=== PATIENT | male | born 1950 | race Caucasian/White ===

== ENCOUNTER 2018-04-08 21:05 | Emergency (ER) | payer MEDICARE ==
[2018-04-08] MEDS: ONDANSETRON HCL/PF 4 MG/ 2ML VIAL IVP ONE (21:15)
[2018-04-08] MEDS: fentaNYL CITRATE/PF 100 MCG/ 2ML AMP IVP ONE (21:16)
[2018-04-08 21:43] LABS: BASOPHILS % 0.4 (0.0-1.5); EOSINOPHILS % 2.7 % (0.0-6.8); MEAN CORPUSCULAR HEMOGLOBIN 31.5 pg (28.0-34.0); MEAN CORPUSCULAR VOLUME 92.8 fl (80.0-100.0); MONOCYTES % 4.7 % (0.0-11.0); NEUTROPHILS # 11.1 # k/uL (1.4-7.7); eGFR (African) > 60; eGFR (Non-African) 54
--- NOTE | 2018-04-08 22:37 | ED Physician Documentation ---
Abdominal Pain - HISTORIAN Historian: patient, spouse - HPI Stated Complaint: Right Sided Chest Wall/RUQ Pain Chief Complaint: Abdominal Pain Onset: hours (2) Duration: worse Timing: worse Context: denies: out of country travel, bad food, recent trauma Severity: severe Quality: pain (RUQ) Associated Symptoms: none Exacerbated by: nothing Relieved by: nothing Further Comments: yes (67 year old male patient presents with RUQ and right chest wall pain 08/28. Patient states pain started 2 hours ago around 1930. Ate dinner at 1730 and went outside to work. Patient started suddenly while outside working. Bm today. Pain worse with deep breath and movement.) - ROS CONST: no problems GI/: none CVS/RESP: none EYES/ENT: none MS/SKIN/LYMPH: none NEURO/PSYCH: none - SOCIAL HX Smoking History: cigarettes - FAMILY HX Family History: none - PAST HX Past History: GERD Other History: hyperlipidemia, hypertension Home Medications: Ambulatory Orders Medication Instructions Recorded Allopurinol [Zyloprim] 300 mg PO DAILY 04/08/18 Baclofen [Liorasal] 10 mg PO TID PRN #30 tablet 04/08/18 Baclofen [Liorasal] 10 mg PO TID PRN #30 tablet 04/08/18 Citalopram Hydrobromide 40 mg PO DAILY 04/08/18 [Citalopram HBr] Clonazepam [Clonazepam] 0.5 mg PO DAILY PRN 04/08/18 Ketorolac Tromethamine [Toradol] 10 mg PO TID #15 tablet 04/08/18 Losartan Potassium [Cozaar] 100 mg PO DAILY 04/08/18 Lovastatin [Lovastatin] 20 mg PO DAILY 04/08/18 Omeprazole [Omeprazole] 20 mg PO DAILY 04/08/18 Allergies/Adverse Reactions: Allergies Allergy/AdvReac Type Severity Reaction Status Date / Time No Known Allergies Allergy Unverified 04/08/18 21:12 - VITAL SIGNS Vital Signs: Vital Signs Temp Pulse Resp BP Pulse Ox 85 24 165/88 95 04/08/18 22:38 04/08/18 21:05 04/08/18 21:05 04/08/18 22:38 - REVIEWED ASSESSMENTS Nursing Assessment Reviewed: Yes Vitals Reviewed: Yes Progress - Progress Progress: Reviewed lab results with patient; WBC 13.9 - will progress with CT abd. [address] result with patient; reviewed "work"; patient states he and his son were working on the [employer], lifting heavy machinery multiple times. Will treat musculoskeletal pain. - EKG/XRAY/CT EKG: rhythm (SR with SA; no acute changes, Rate 86) ED Results Lab/Radiology - Lab Results Lab Results: Lab Results 04/08/18 04/08/18 21:17 21:17 WBC 13.90 K/ul H K/ul (4.00-12.00) RBC 5.03 M/ul M/ul (3.90-5.20) Hgb 15.8 g/dL g/dL (12.0-18.0) Hct 46.7 % % (37.0-53.0) MCV 92.8 fl fl (80.0-100.0) MCH 31.5 pg pg (28.0-34.0) MCHC 33.9 g/dL g/dL (30.0-36.0) RDW 14.4 % H % (11.3-14.3) Plt Count 225 K/mm3 K/mm3 (130-400) Neut % (Auto) 79.8 % H % (39.0-79.0) Lymph % (Auto) 11.5 % L % (16.0-50.0) [place] % (Auto) 4.7 % % (0.0-11.0) Eos % (Auto) 2.7 % % (0.0-6.8) Baso % (Auto) 0.4 (0.0-1.5) Neut # (Auto) 11.1 # k/uL H # k/uL (1.4-7.7) Lymph # (Auto) 1.6 # k/uL # k/uL (0.6-4.0) [place] # (Auto) 0.6 # k/uL # k/uL (0.0-0.9) Eos # (Auto) 0.4 # k/uL # k/uL (0.0-0.6) Baso # (Auto) 0.0 # k/uL # k/uL (0.0-0.5) Reactive Lymphs % 0.9 % % (0.0-5.0) Reactive Lymphs # 0.1 # k/uL # k/uL (0.0-0.8) Sodium 143 mmol/L mmol/L (136-145) Potassium 3.8 mmol/L mmol/L (3.5-5.1) Chloride 104 mmol/L mmol/L (98-107) Carbon Dioxide 27 mmol/L mmol/L (22-30) BUN 23 mg/dL H mg/dL (9-20) Creatinine 1.40 mg/dL H mg/dL (0.66-1.25) Estimated Creat Clear 87 Est GFR ( Amer) > 60 (60 - ) Est GFR (Non-Af Amer) 54 L (60 - ) Glucose 98 mg/dL mg/dL (74-106) Lactate 1.8 U/L U/L (0.7-2.1) Calcium 9.5 mg/dL mg/dL (8.4-10.2) Total Bilirubin 0.1 mg/dL L mg/dL (0.2-1.3) AST 40 U/L U/L (15-46) ALT 38 U/L U/L (13-69) Alkaline Phosphatase 71 U/L U/L (38-126) Total Protein 7.6 g/dL g/dL (6.3-8.2) Albumin 4.5 g/dL g/dL (3.5-5.0) Lipase 72 U/L U/L (23-300) - Radiology Radiology Impressions: HISTORY: 67-year-old male with right-sided chest pain for 2 hours. COMPARISON: None available TECHNIQUE: 2 views of the chest were performed. FINDINGS: There is a mild patchy infiltrate in the posterior chest on the lateral film, likely right-sided, although this is not well characterized on the frontal view. No pneumothorax or pulmonary edema. The heart is not enlarged. IMPRESSION: Probable mild right lower lobe pneumonia. Electronically signed on April 08, 2018 9:47:33 PM CDT by: Jefferson Hathaway HISTORY: 67-year-old male with right upper quadrant abdominal pain, history of urolithiasis. COMPARISON: None available TECHNIQUE: Helical CT images of the abdomen and pelvis were performed without contrast. Sagittal and coronal reformatted images were obtained. FINDINGS: Urinary tract: No ureteral calculi, hydronephrosis, or hydroureter bilaterally. There are multiple nonobstructing renal calculi bilaterally. Probable simple parapelvic cyst in the right renal inferior pole. No urinary bladder calculi. The prostate is mildly enlarged. Miscellaneous: There are mild opacities in the lung bases. There is a calcified granuloma in the right lower lobe and calcified lymph nodes in the right infrahilar region. The liver is diffusely fatty infiltrated. The gallbladder is surgically absent. The noncontrast spleen, pancreas, adrenal glands are unremarkable. No abnormal bowel dilatation, free air, free fluid, or suspicious adenopathy. The appendix is not dilated and does not appear inflamed. There is lumbar degenerative disc disease and facet arthropathy. IMPRESSION: 1. Bilateral nonobstructing nephrolithiasis, without ureteral calculi or urinary tract obstruction bilaterally. 2. Diffuse fatty infiltration of the liver. 3. Postoperative changes of cholecystectomy. 4. Mild prostatic enlargement. 5. No evidence of bowel obstruction, acute appendicitis, or other acute process in the abdomen or pelvis. Electronically signed on April 08, 2018 10:26:50 PM CDT by: Jefferson Hathaway - Orders Orders: ED Orders Category Date Time Status Continuous EKG monitoring Q30M Care 04/08/18 21:10 Active Continuous Pulse Oximetry Q30M Care 04/08/18 21:[address] IV Lock 1T Care 04/08/18 21:10 Active CHEST 2VIEW [RAD] Stat Exams 04/08/18 21:[address] ABD & PELVIS W/O CON Stat Exams 04/08/18 Ordered CBC/PLATELET/DIFF Stat Lab 04/08/18 21:17 Completed CMP Stat Lab 04/08/18 21:17 Completed LACTATE Stat Lab 04/08/18 21:17 Completed LIPASE Stat Lab 04/08/18 21:17 Completed UA W/MICRO IF INDICATED Stat Lab 04/08/18 21:10 Ordered Diazepam [Valium] Med 04/08/18 22:57 Once 5 mg IVP NOW ONE HYDROcodone /APAP 5/325 [[place] 5/325] Med 04/08/18 22:57 Once 2 each PO NOW ONE Ketorolac Tromethamine [Toradol] Med 04/08/18 22:57 Once 30 mg IVP NOW ONE Ondansetron HCl/Pf [Zofran 4 mg/2 ml] Med 04/08/18 21:11 Discontinued 4 mg IVP NOW ONE fentaNYL CITRATE/PF [Duragesic] Med 04/08/18 21:11 Discontinued 50 mcg IVP NOW ONE EKG WITH COMPARISON Stat Ther 04/08/18 21:10 Ordered Abdominal Pain Physical Exam - Physical Exam General Appearance: moderate distress EENT: eye inspection normal, ENT inspection normal, pharynx normal, no signs of dehydration, AMBROSIO, no nystagmus, TM's nml RESPIRATORY: no resp distress, breath sounds normal, other (tenderness at right lower chest wall with palpation; tenderness RUQ, +Mccauley's) CVS: reg rate & rhythm, heart sounds normal, equal pulses, no murmur, no gallop , PMI nml, no JVD, no friction rub, 24 ABDOMEN: soft, no organomegaly, normal bowel sounds, rigid (RUQ; +mccauley's). No : McBurney's point tenderne SKIN: normal color, warm/dry, NR, INT, PAL, DR EXTREMITIES: non-tender, normal range of motion, no evidence of injury, no edema , J, LITERACY COACH NEURO: oriented X3, CN's nml as tested, motor nml, sensation nml Vital Signs: Vital Signs Temp Pulse Resp BP Pulse Ox 85 24 165/88 95 04/08/18 22:38 04/08/18 21:05 04/08/18 21:05 04/08/18 22:38 Discharge Clincal Impression: Musculoskeletal pain Prescriptions: Baclofen [Liorasal] 10 mg PO TID PRN #30 tablet PRN Reason: Spasms Baclofen [Liorasal] 10 mg PO TID PRN #30 tablet PRN Reason: Spasms Ketorolac Tromethamine [Toradol] 10 mg PO TID #15 tablet Referrals: Isabel Hernandez MD [Primary Care Provider] - 2 Days Additional Instructions: Rest diet supervisor your prescriptions and start them tomorrow. You may use Tylenol every 4hour as needed for pain. Limit your dose to less than 4 G per day. Do not take ibuprofen, aleve, naproxen or any other NSAID while you are on toradol. You may want to try massage, over the counter lidocaine patches, biofreeze, shyanne echeverria or aspercream . Return to the emergency department or call your doctor, if you are having severe abdominal pain, fever >101.0, or if there is blood in the vomit or diarrhea, or you cannot keep down liquids or solid food. Condition: Stable Disposition: 01 HOME, SELF-CARE Decision to Admit: NO Decision Time: 22:48
[2018-04-08] MEDS: KETOROLAC TROMETHAMINE 30 MG/1ML VIAL IVP ONE (22:58)
[2018-04-08] MEDS: ORPHENADRINE CITRATE 60 MG/2ML IV ONE (23:06)
[2018-04-08] MEDS: HYDROcodone /APAP 5/325 1 EACH TABLET PO ONE (23:07)
[2018-04-08] MEDS: (BACK ORDERED; DO NOT ORDER) DIAZEPAM 5 MG/ML DISP.SYRIN IVP ONE (23:08)
[2018-04-08] MEDS: ORPHENADRINE CITRATE 60 MG/2ML ONE (23:08)
[2018-04-08 23:29] VITALS: BP 133/97
--- NOTE | 2018-04-09 06:48 | Diagnostic Imaging Report ---
LORRIE SIGALA (BODY BUILDER APPRENTICE) - ER [facility] [address] [address] Report Submission Date: April 08, 2018 9:47:33 PM CDT Patient Study Name: QUINTEN CROCKER Date: April 08, 2018 9:26:49 PM CDT Modality Type: DX Gender: M Description: CHEST : 54 Institution: [facility] Physician: LORRIE SIGALA (ISIDRO) - ER HISTORY: 67-year-old male with right-sided chest pain for 2 hours. COMPARISON: None available TECHNIQUE: 2 views of the chest were performed. FINDINGS: There is a mild patchy infiltrate in the posterior chest on the lateral film, likely right-sided, although this is not well characterized on the frontal view. No pneumothorax or pulmonary edema. The heart is not enlarged. IMPRESSION: Probable mild right lower lobe pneumonia. Electronically signed on April 08, 2018 9:47:33 PM CDT by: Jefferson MARTINEZ
--- NOTE | 2018-04-09 06:48 | Diagnostic Imaging Report ---
LORRIE SIGALA (CUSTOM STOCK MAKER) - ER [facility] [address] [facility] [address] [place], [place]. [address] Report Submission Date: April 08, 2018 10:26:50 PM CDT Patient Study Name: QUINTEN CROCKER Date: April 08, 2018 9:58:03 PM CDT Modality Type: CT\SR Gender: M Description: CT ABD PELVIS W/O CO : 54 Institution: [facility] Physician: LORRIE SIGALA (CUSTOM STOCK MAKER) - ER HISTORY: 67-year-old male with right upper quadrant abdominal pain, history of urolithiasis. COMPARISON: None available TECHNIQUE: Helical CT images of the abdomen and pelvis were performed without contrast. Sagittal and coronal reformatted images were obtained. FINDINGS: Urinary tract: No ureteral calculi, hydronephrosis, or hydroureter bilaterally. There are multiple nonobstructing renal calculi bilaterally. Probable simple parapelvic cyst in the right renal inferior pole. No urinary bladder calculi. The prostate is mildly enlarged. Miscellaneous: There are mild opacities in the lung bases. There is a calcified granuloma in the right lower lobe and calcified lymph nodes in the right infrahilar region. The liver is diffusely fatty infiltrated. The gallbladder is surgically absent. The noncontrast spleen, pancreas, adrenal glands are unremarkable. No abnormal bowel dilatation, free air, free fluid, or suspicious adenopathy. The appendix is not dilated and does not appear inflamed. There is lumbar degenerative disc disease and facet arthropathy. IMPRESSION: 1. Bilateral nonobstructing nephrolithiasis, without ureteral calculi or urinary tract obstruction bilaterally. 2. Diffuse fatty infiltration of the liver. 3. Postoperative changes of cholecystectomy. 4. Mild prostatic enlargement. 5. No evidence of bowel obstruction, acute appendicitis, or other acute process in the abdomen or pelvis. Electronically signed on April 08, 2018 10:26:50 PM CDT by: Jefferson MARTINEZ
[2018-04-09 08:16] LABS: APPEARANCE,URINE CLEAR (CLEAR); COLOR,URINE YELLOW (YELLOW); OCCULT BLOOD,URINE NEGATIVE (NEGATIVE); UROBILINOGEN URINE 0.2 Eu (0.2-1.0)
== END 2018-04-08 23:28 | disposition home or self-care (01) ==
LOC: ED 21:05
DX: M79.1 Myalgia (principal)
CPT/HCPCS: 71046; 74176; 80053; 81002; 83605; 83690; 85025; 93005; A9270; J1885; J2360; J2405; J3010; 96374; 96375; 99285; S1016